=== PATIENT | male | born 1980 | race Hispanic/Latino ===

== ENCOUNTER 2019-07-30 19:15 | Emergency (ER) | payer SELFPAY ==
--- NOTE | 2019-07-30 20:05 | Emergency Department Report ---
<RENEE RODRÍGUEZ - Last Filed: 07/30/19 22:25> ED Psych HPI - General Chief Complaint: Psych Stated Complaint: ETOH SUICIDAL IDEALATIONS Time Seen by Provider: 07/30/19 19:58 Source: EMS Mode of arrival: Ambulatory - History of Present Illness Initial Comments: Patient is a 38-year-old male with past medical history of alcohol abuse type 2 diabetes and hypertension who is presenting with suicidal ideations. Patient had been drinking quite a bit today. Patient called paramedics because he states "my family shouldn't have to put up with this. There is no reason for me to be here. I need to go on" when asked what he means by he needs to go on he stated that I knew what he meant and he didn't want to have to say it. Patient does shake his head yes that he was having thoughts of suicide M believes the world be better if he was not a lot. Patient denies any homicidal ideations auditory or visual hallucinations at this time. - Related Data Home Medications Medication Instructions Recorded Confirmed Last Taken Sulfamethoxazole/Trimethoprim 1 each PO BID 12/02/14 12/02/14 12/02/14 [Bactrim Ds] Previous Rx's Medication Instructions Recorded Last Taken Type HYDROcodone/APAP 5-325 [Vincent 1 each PO Q6HR PRN #12 tablet 12/02/14 Unknown Rx 5/325] Ibuprofen [Motrin 800 MG tab] 800 mg PO Q8H PRN #30 tablet 12/02/14 Unknown Rx Allergies Allergy/AdvReac Type Severity Reaction Status Date / Time ceftriaxone sodium Allergy Rash Verified 12/02/14 13:48 [From Rocephin] ED Review of Systems Comment: All other systems reviewed and negative ED Past Medical Hx - Past Medical History Previous Medical History?: Yes Hx Hypertension: Yes ("resolved") Hx Diabetes: Yes (type 2) Hx Psychiatric Treatment: Yes (depression) Additional medical history: high cholesterol - Surgical History Past Surgical History?: Yes Additional Surgical History: anal fistula. toe surgery - Social History Smoking Status: Current Every Day Smoker Substance Use Type: Alcohol - Medications Home Medications: Home Medications Medication Instructions Recorded Confirmed Last Taken Type HYDROcodone/APAP 5-325 [Vincent 1 each PO Q6HR PRN #12 tablet 12/02/14 Unknown Rx 5/325] Ibuprofen [Motrin 800 MG tab] 800 mg PO Q8H PRN #30 tablet 12/02/14 Unknown Rx Sulfamethoxazole/Trimethoprim 1 each PO BID 12/02/14 12/02/14 12/02/14 History [Bactrim Ds] ED Physical Exam - General Limitations: No Limitations General appearance: alert, in no apparent distress, appears intoxicated - Head Head exam: Present: atraumatic, normocephalic - Eye Eye exam: Present: normal appearance - ENT ENT exam: Present: mucous membranes moist - Neck Neck exam: Present: normal inspection - Respiratory Respiratory exam: Present: normal lung sounds bilaterally. Absent: respiratory distress - Cardiovascular Cardiovascular Exam: Present: regular rate, normal rhythm. Absent: systolic murmur, diastolic murmur, rubs, gallop - GI/Abdominal GI/Abdominal exam: Present: soft, normal bowel sounds - Rectal Rectal exam: Present: deferred - Extremities Exam Extremities exam: Present: normal inspection - Back Exam Back exam: Present: normal inspection - Neurological Exam Neurological exam: Present: alert, oriented X3 - Psychiatric Psychiatric exam: Present: normal affect, normal mood - Skin Skin exam: Present: warm, dry, intact, normal color. Absent: rash ED Course - Reevaluation(s) Reevaluation #1: 07/30/19 20:04 Patient was placed on a psychiatric hold. We'll also placed on suicide pre cautions. Patient will be allowed to reach sobriety and will also check labs to medically clear to patient. Reevaluation #2: 07/30/19 22:26 PT is medically cleared at this time for psychiatric evaluation. Patient was placed in seclusion and a [id number] was done approximately 20 minutes after the patient's seclusion was initiated ED Medical Decision Making - Lab Data Result diagrams: 07/30/19 20:44 07/30/19 20:44 Lab Results 07/30/19 07/30/19 07/30/19 Range/Units 20:44 20:44 20:44 WBC 7.9 (4.5-11.0) K/mm3 RBC 4.74 (3.65-5.03) M/mm3 Hgb 16.4 H (11.8-15.2) gm/dl Hct 45.4 (35.5-45.6) % MCV 96 H (84-94) fl MCH 35 H (28-32) pg MCHC 36 H (32-34) % RDW 12.2 L (13.2-15.2) % Plt Count 234 (140-440) K/mm3 Lymph % (Auto) 38.8 H (13.4-35.0) % Dewey % (Auto) 4.2 (0.0-7.3) % Eos % (Auto) 1.4 (0.0-4.3) % Baso % (Auto) 0.6 (0.0-1.8) % Lymph # 3.1 (1.2-5.4) K/mm3 Dewey # 0.3 (0.0-0.8) K/mm3 Eos # 0.1 (0.0-0.4) K/mm3 Baso # 0.0 (0.0-0.1) K/mm3 Seg Neutrophils % 55.0 (40.0-70.0) % Seg Neutrophils # 4.4 (1.8-7.7) K/mm3 Sodium 140 (137-145) mmol/L Potassium 3.9 (3.6-5.0) mmol/L Chloride 97.7 L (98-107) mmol/L Carbon Dioxide 18 L (22-30) mmol/L Anion Gap 28 mmol/L BUN 13 (9-20) mg/dL Creatinine 0.7 L (0.8-1.5) mg/dL Estimated GFR > 60 ml/min BUN/Creatinine Ratio 19 % Glucose 280 H (75-100) mg/dL Calcium 9.5 (8.4-10.2) mg/dL Salicylates < 0.3 L (2.8-20.0) mg/dL Acetaminophen (10.0-30.0) ug/mL Plasma/Serum Alcohol (0-0.07) % 07/30/19 07/30/19 Range/Units 20:44 20:44 WBC (4.5-11.0) K/mm3 RBC (3.65-5.03) M/mm3 Hgb (11.8-15.2) gm/dl Hct (35.5-45.6) % MCV (84-94) fl MCH (28-32) pg MCHC (32-34) % RDW (13.2-15.2) % Plt Count (140-440) K/mm3 Lymph % (Auto) (13.4-35.0) % Dewey % (Auto) (0.0-7.3) % Eos % (Auto) (0.0-4.3) % Baso % (Auto) (0.0-1.8) % Lymph # (1.2-5.4) K/mm3 Dewey # (0.0-0.8) K/mm3 Eos # (0.0-0.4) K/mm3 Baso # (0.0-0.1) K/mm3 Seg Neutrophils % (40.0-70.0) % Seg Neutrophils # (1.8-7.7) K/mm3 Sodium (137-145) mmol/L Potassium (3.6-5.0) mmol/L Chloride (98-107) mmol/L Carbon Dioxide (22-30) mmol/L Anion Gap mmol/L BUN (9-20) mg/dL Creatinine (0.8-1.5) mg/dL Estimated GFR ml/min BUN/Creatinine Ratio % Glucose (75-100) mg/dL Calcium (8.4-10.2) mg/dL Salicylates (2.8-20.0) mg/dL Acetaminophen < 5.0 L (10.0-30.0) ug/mL Plasma/Serum Alcohol 0.18 H (0-0.07) % - Medical Decision Making Patient placed on a ED Disposition Clinical Impression: Anxiety Alcohol intoxication Qualifiers: Complication of substance-induced condition: uncomplicated Qualified Code(s): F10.920 - Alcohol use, unspecified with intoxication, uncomplicated Depression Qualifiers: Depression Type: unspecified Qualified Code(s): F32.9 - Major depressive disorder, single episode, unspecified Disposition: DC- TO HOME OR SELFCARE Condition: Stable Referrals: PRIMARY CARE, [Primary Care Provider] - 3-5 Days <JAKE ARRIAGA - Last Filed: 07/31/19 12:02> ED Review of Systems ROS: Stated complaint: ETOH SUICIDAL IDEALATIONS Other details as noted in HPI ED Course Vital Signs 07/30/19 07/31/19 19:59 07:59 Temperature 98.8 F 98.2 F Pulse Rate 108 H 74 Respiratory 20 18 Rate Blood Pressure 126/78 129/75 [Right] O2 Sat by Pulse 100 96 Oximetry ED Medical Decision Making - Lab Data Result diagrams: 07/30/19 20:44 07/30/19 20:44 - Medical Decision Making I was asked to reevaluate this patient regarding whether or not he requires a 1013 or involuntary inpatient psychiatric admission. The patient had presented last night acutely intoxicated from alcohol. At that time it appears that he had made some insinuation of suicidal ideations and did have some very inappropriate behavior. The patient was made an ED hold and was seen by the psychiatric assessment team this morning. It was staffed with the psychiatrist, Dr. Riley, and they have given me a recommendation of allowing the patient to be discharged with outpatient follow-up. I did see the patient who is calm, appropriate, awake, alert and oriented. There are no signs of any current intoxication. The patient adamantly denies any suicidal ideations, homicidal ideations or any hallucinations. He does admit that he went into a "dark place" last night when he was intoxicated but denies any suicidal ideations now or previous to his intoxication. The patient also displays true regret about his behavior last night and has asked for any ER staff who worked last night to receive his apologies. Given the patient's cur rent demeanor, and the fact that he denies any suicidal ideations, and is awake/oriented with appropriate decision making capacity, the patient will be discharged home. He has been instructed to follow-up with his psychiatrist, a primary care physician, and any other referrals given to him by the psychiatric team. He has also been instructed to return to the emergency department immediately with any thoughts of harming himself, thoughts of harming others, or with any acute distress. Critical care attestation.: If time is entered above; I have spent that time in minutes in the direct care of this critically ill patient, excluding procedure time. ED Disposition Is pt being admited?: No Time of Disposition: 12:02
[2019-07-30] MEDS ORDERED: ZIPRASIDONE MESYLATE 20 MG VIAL IM ONE (20:22)
[2019-07-30 21:06] LABS: Basophils % (Auto) 0.6 % (0.0-1.8); Eosinophils # (Auto) 0.1 K/mm3 (0.0-0.4); Eosinophils % (Auto) 1.4 % (0.0-4.3); Lymphocytes # (Auto) 3.1 K/mm3 (1.2-5.4); Lymphocytes % (Auto) 38.8 % (13.4-35.0); Mean Corpuscular HGB Conc 36 % (32-34); Mean Corpuscular Volume 96 fl (84-94); Monocytes # (Auto) 0.3 K/mm3 (0.0-0.8); Monocytes % (Auto) 4.2 % (0.0-7.3); Platelet Count 234 K/mm3 (140-440); Red Blood Count 4.74 M/mm3 (3.65-5.03); Red Cell Distribution Width 12.2 % (13.2-15.2)
[2019-07-30 21:13] LABS: Hemoglobin 16.4 gm/dl (11.8-15.2)
[2019-07-30 21:14] LABS: Hematocrit 45.4 % (35.5-45.6)
[2019-07-30 21:25] LABS: BUN/Creatinine Ratio 19; Blood Urea Nitrogen 13 mg/dL (9-20); Calcium 9.5 mg/dL (8.4-10.2); Hemolysis Index 15
[2019-07-31 04:48] LABS: Amphetamine Screen,Urine PRESUMPTIVE NEGATIVE; Benzodiazepines Screen,Urine PRESUMPTIVE NEGATIVE; Cannabinoid Screen,Urine PRESUMPTIVE NEGATIVE; Cocaine Screen,Urine PRESUMPTIVE NEGATIVE; Methadone Screen,Urine PRESUMPTIVE NEGATIVE; Opiate Screen,Urine PRESUMPTIVE NEGATIVE
[2019-07-31] MEDS ORDERED: ACETAMINOPHEN 500 MG TAB ONE (06:02)
[2019-07-31 08:00] VITALS: BP 129/75
== END 2019-07-31 12:10 | disposition home or self-care (01) ==
LOC: ED 19:15
DX: F41.9 Anxiety disorder, unspecified (principal); F32.9 Major depressive disorder, single episode, unspecified; F10.920 Alcohol use, unspecified with intoxication, uncomplicated; R45.851 Suicidal ideations; E11.9 Type 2 diabetes mellitus without complications; I10 Essential (primary) hypertension; E78.00 Pure hypercholesterolemia, unspecified; Z79.899 Other long term (current) drug therapy; Z88.8 Allergy status to other drugs, medicaments and biological substances; Z98.890 Other specified postprocedural states
CPT/HCPCS: 36415; 80048; 80307; 82962; 85025; 96372; 99284; J3486; 80320; G0480